=== PATIENT | female | born 1985 | race Caucasian/White ===

== ENCOUNTER 2017-05-24 08:25 | Emergency (ER) | payer OTHER ==
[~2017-05-24] VITALS: Ht 175.3 cm; Wt 74.9 kg
[~2017-05-24 08:25] MED LIST: BENTYL10 MG PO; IBUPROFEN800 MG PO; NOHOMEMEDS; ORTHO TRI-CY1 TABLE1 PO; PEN-VEE K,VEET500 MG PO; TRAMADOL HCL50 MG PO; ZANTAC150 MG PO; ZOFRAN ODT4 MG PO
[2017-05-24 08:48] LABS: HEMATOCRIT 48.7 % (36.0-46.0); MCH 30.2 PG (29.0-34.0); MCHC 32.9 G/DL (30.0-36.0); MCV 92.1 FL (83-99); MEAN PLAT.VOLUME 9.8 uM^3 (9.5-12.4); PLATELET COUNT 353 K/uL (156-360); RBC DIS.WIDTH-CV 12.5 % (11.8-14.6); RBC DIS.WIDTH-SD 42.1 % (39-53); RED BLOOD COUNT 5.29 M/uL (3.80-5.20); WHITE BLOOD COUNT 13.7 K/uL (4.1-10.2)
[2017-05-24 08:57] LABS: CHLORIDE 104 mEq/L (99-109); SODIUM 141 mEq/L (136-147)
[2017-05-24 09:00] LABS: GLUCOSE 98 mg/dL (70-99)
[2017-05-24 09:01] LABS: ANION GAP 10 MEQ/L (2-14)
[2017-05-24 09:02] LABS: TOTAL BILIRUBIN 1.3 mg/dL (0.0-1.0)
[2017-05-24 09:03] LABS: ALKALINE PHOSPHATASE 65 IU/L (3-129); GFR ESTIMATE (CALCULATED) > 59 mL/min/
[2017-05-24 09:05] LABS: UREA NITROGEN (BUN) 20 mg/dL (9-23)
[2017-05-24 09:07] LABS: LIPASE 17 U/L (1.0-51.0)
[2017-05-24 09:16] LABS: QUANTITATIVE HCG < 4.0 MIU/ML
[2017-05-24 10:55] LABS: ADD MIUA? YES; BILIRUBIN NEGATIVE; BLOOD NEGATIVE; COLOR YELLOW ((YELLOW)); GLUCOSE (STRIP) NEGATIVE; KETONES NEGATIVE; LEUKOCYTES NEGATIVE; NITRITE NEGATIVE; PROTEIN (STRIP) 30; UROBILINOGEN 0.2 MG/DL (0.2-1.0)
[2017-05-24 10:58] LABS: BACTERIA NONE SEEN /HPF; EPITHELIAL CELLS RARE /HPF; MUCUS 1+ /LPF; RED BLOOD CELLS 0-5 /HPF (0-5); UCUL ADDED? YES
[2017-05-24] MEDS ORDERED: ZOFRAN4 MG PO (12:11)
[2017-05-24] MEDS ORDERED: BENTYL20 MG PO (12:11)
[2017-05-24] MEDS ORDERED: IMODIUM MS REL1 EACH PO (12:11)
[2017-05-24 12:56] VITALS: BP 104/74
== END 2017-05-24 12:56 | disposition home or self-care (01) ==
LOC: EME 08:25
DX: R10.9 Unspecified abdominal pain (principal); R11.10 Vomiting, unspecified; R19.7 Diarrhea, unspecified; E78.5 Hyperlipidemia, unspecified; Z88.1 Allergy status to other antibiotic agents
CPT/HCPCS: 80053; 81003; 83690; 84702; 85027; 87086; 87493; J1885; J2405; J7030

== ENCOUNTER 2017-06-25 12:30 | Day surgery (SDC) | payer OTHER ==
[~2017-06-25] VITALS: Ht 165.1 cm; Wt 77.1 kg
[~2017-06-25 12:30] MED LIST changes: +AVIANE1 EACH PO; +BENTYL20 MG PO; +IMODIUM MS REL1 EACH PO; +LIPITOR40 MG PO; -ORTHO TRI-CY1 TABLE1 PO; +ZOFRAN4 MG PO
[2017-06-25 13:00] VITALS: BP 109/68
[2017-06-25] MEDS ORDERED: IBUPROFEN800 MG PO (14:21)
[2017-06-25] MEDS ORDERED: ENDOCET 5-3251 EACH PO (14:21)
[2017-06-25 17:34] VITALS: BP 98/53
[2017-06-25 18:30] VITALS: BP 103/63
== END 2017-06-25 18:41 | disposition home or self-care (01) ==
LOC: SDC 12:30
PROC: 0UT74ZZ Resection of Bilateral Fallopian Tubes, Percutaneous Endoscopic Approach (ICD-10-PCS; principal; 2017-06-25)
DX: Z30.2 Encounter for sterilization (principal); K66.0 Peritoneal adhesions (postprocedural) (postinfection); Z88.1 Allergy status to other antibiotic agents
CPT/HCPCS: 88305; J1170; J1885; J2250; J2765; J3010

== ENCOUNTER 2017-07-11 21:30 | Emergency (ER) | payer OTHER ==
[~2017-07-11] VITALS: Ht 165.1 cm; Wt 77.7 kg
[~2017-07-11 21:30] MED LIST changes: +ENDOCET 5-3251 EACH PO
[2017-07-11 22:07] LABS: HEMATOCRIT 43.1 % (36.0-46.0); HEMOGLOBIN 14.5 G/DL (11.9-15.5); MCH 30.6 PG (29.0-34.0); MCHC 33.6 G/DL (30.0-36.0); MCV 90.9 FL (83-99); PLATELET COUNT 343 K/uL (156-360); RBC DIS.WIDTH-CV 12.1 % (11.8-14.6); RBC DIS.WIDTH-SD 40.8 % (39-53); RED BLOOD COUNT 4.74 M/uL (3.80-5.20); WHITE BLOOD COUNT 9.1 K/uL (4.1-10.2)
[2017-07-11 22:17] LABS: ALBUMIN 4.2 g/dL (3.2-4.8)
[2017-07-11 22:18] LABS: CHLORIDE 105 mEq/L (99-109); POTASSIUM 3.8 mEq/L (3.7-5.4); SODIUM 137 mEq/L (136-147)
[2017-07-11 22:20] LABS: GLUCOSE 108 mg/dL (70-99); TOTAL PROTEIN 7.5 g/dL (6.4-8.3)
[2017-07-11 22:22] LABS: TOTAL BILIRUBIN 0.3 mg/dL (0.0-1.0)
[2017-07-11 22:23] LABS: ALKALINE PHOSPHATASE 69 IU/L (3-129)
[2017-07-11 22:24] LABS: CREATININE 0.8 mg/dL (0.6-1.3); GFR ESTIMATE (CALCULATED) > 59 mL/min/
[2017-07-11 22:25] LABS: AST (GOT) 14 IU/L (2-34); UREA NITROGEN (BUN) 14 mg/dL (9-23)
[2017-07-11 22:26] LABS: ALT (GPT) 16 IU/L (3-49)
[2017-07-11 22:32] LABS: QUANTITATIVE HCG < 4.0 MIU/ML
[2017-07-11 23:26] LABS: TROP-I INTERPRETATION NEGATIVE; TROPONIN-I < 0.01 ng/mL (0.0-0.30)
[2017-07-12] MEDS ORDERED: ATIVAN0.5 MG PO (02:05)
[2017-07-12 02:41] VITALS: BP 117/69
[2017-07-12 08:33] LABS: THYROTROPIN (TSH) 6.7 MIU/L (0.4-5.5)
== END 2017-07-12 02:43 | disposition home or self-care (01) ==
LOC: EME 21:30
PROVIDERS: Emergency Medicine
DX: R00.2 Palpitations (principal); E78.5 Hyperlipidemia, unspecified; F32.9 Major depressive disorder, single episode, unspecified; F41.9 Anxiety disorder, unspecified; Z79.3 Long term (current) use of hormonal contraceptives; Z88.1 Allergy status to other antibiotic agents
CPT/HCPCS: 71020; 71275; 80053; 81003; 84439; 84443; 84484; 84702; 85027; 85379; 93005; 99281; 99285; J2405